=== PATIENT | male | born 1985 | race African-American/Black ===

== ENCOUNTER 2022-01-23 20:50 | Emergency (ER) | payer SELFPAY ==
[2022-01-23] MEDS ORDERED: ACETAMINOPHEN 500 MG TAB ONE (22:18)
[2022-01-23] MEDS ORDERED: KETOROLAC 30 MG/ML INJ ONE (22:18)
[2022-01-23] MEDS ORDERED: NA CHLORIDE 0.9% 1,000 ML ONE (22:19)
[2022-01-23] MEDS ORDERED: FAMOTIDINE 20 MG/2 ML VIAL IV ONE (22:19)
[2022-01-23] MEDS ORDERED: ONDANSETRON 4 MG/2 ML VIAL ONE (22:19)
[2022-01-23 22:30] LABS: Absolute Lymphocytes (CBC) 0.3 K/uL (0.7-4.9); Hematocrit 42.1 % (39.6-49.0); Lymphocytes % 4.9 % (15.3-44.8); MCV 94.4 fL (80-100); MPV 9.6 fL (7.6-11.3); RBC Red Blood Cell Count 4.46 M/uL (4.33-5.43)
[2022-01-23 22:52] LABS: Albumin 4.5 g/dL (3.4-5.0); Bilirubin Total 0.3 mg/dL (0.2-1.0); Potassium 3.3 mmol/L (3.5-5.1)
[2022-01-23] MEDS ORDERED: POTASSIUM CL SA 10 MEQ TAB PO ONE (23:45)
--- NOTE | 2022-01-24 00:05 | ER ---
Nurse's Notes [facility] Name: Katina Lynch Age: 36 yrs Sex: Male : 1985 Arrival Date: 01/23/2022 Time: 20:51 Bed 16 Private MD: Diagnosis: Nausea with vomiting, unspecified Presentation: 01/23 21:20 Chief complaint: Patient states: "I have been throwing up all day long and my body is vc1 in a lot of pain and I feel really weak, I can't keep anything down.". Coronavirus screen: Vaccine status: Patient reports being unvaccinated. fatigue, fever, muscle pain, nausea, vomiting. Client presents with at least one sign or symptom that may indicate coronavirus-19. Standard/surgical mask placed on the client. Provider contacted for isolation considerations. Ebola Screen: No symptoms or risks identified at this time. Risk Assessment: Do you want to hurt yourself or someone else? Patient reports no desire to harm self or others. Onset of symptoms was January 23, 2022 at 10:00. 21:20 Method Of Arrival: Ambulatory vc1 21:20 Acuity: [id number] 3 vc1 21:26 Initial Sepsis Screen: Does the patient meet any 2 criteria? HR > 90 bpm. No. Patient's vc1 initial sepsis screen is negative. Does the patient have a suspected source of infection? No. Patient's initial sepsis screen is negative. Triage Assessment: 21:24 General: Appears in no apparent distress. uncomfortable, Behavior is calm, cooperative, vc1 appropriate for age. Pain: Denies pain. EENT: No deficits noted. Neuro: Level of Consciousness is awake, alert, obeys commands, Oriented to person, place, time, situation. Cardiovascular: Capillary refill < 3 seconds Patient's skin is warm and dry. Respiratory: Airway is patent Respiratory effort is even, unlabored, Respiratory pattern is regular, symmetrical. GI: Reports intolerance of fluids, intolerance of food, nausea, vomiting, Patient currently denies abdominal pain, diarrhea. : No deficits noted. Derm: No signs and/or symptoms reported regarding the dermatologic system. Derm: No deficits noted. Historical: - Allergies: 21:22 No Known Allergies; vc1 - Immunization history:: Adult Immunizations up to date, Client reports having NOT received the Covid vaccine. - Social history:: Smoking status: Patient uses smokes CBD, pre-rolled. Screenin:25 Abuse screen: Denies threats or abuse. Nutritional screening: No deficits noted. vc1 Tuberculosis screening: No symptoms or risk factors identified. Fall Risk None identified. Assessment: 21:58 GI: Reports lower abdominal pain, intolerance of fluids, intolerance of food, nausea. ja4 Musculoskeletal: Reports pain in back. 23:44 GI: Reports tolerance of fluids, tolerance of food. ja4 23:44 Reassessment: pt given oral meds and saltine crackers. baudilio well. ja4 01/24 00:23 Reassessment: Patient states feeling better. Patient states symptoms have improved. ja4 Vital Signs: 01/23 21:20 Weight 70.31 kg; Height 5 ft. 8 in. (172.72 cm); Pain 9/10; vc1 21:22 BP 122 / 71; Pulse 101; Resp 18; Temp 100.5; Pulse Ox 100% ; vc1 21:58 BP 113 / 48; Pulse 94; Resp 16; Pulse Ox 100% on R/A; ja4 23:48 BP 113 / 69; Pulse 79; Resp 18; Pulse Ox 100% on R/A; ja4 21:20 Body Mass Index 23.57 (70.31 kg, 172.72 cm) vc1 ED Course: 20:51 Patient arrived in ED. ja2 20:52 [facility]ren Henriquez F[facility]-C [facility] kb 20:52 Joel Sanchez MD is Attending Physician. kb 21:22 Triage completed. vc1 21:22 Arm band placed on left wrist. vc1 21:48 Viral Zafar, MALLORIE is Primary Nurse. ja4 21:58 Patient has correct armband on for positive identification. Bed in low position. ja4 21:58 No provider procedures requiring assistance completed. Inserted saline lock: 20 gauge ja4 in left antecubital area, using aseptic technique. 22:24 CBC with Diff Sent. ja4 22:24 CMP Sent. ja4 22:24 Lipase Sent. ja4 01/24 00:23 IV discontinued, intact, bleeding controlled, No redness/swelling at site. Pressure ja4 dressing applied. Administered Medications: 01/23 22:17 Drug: NS 0.9% 1000 ml Route: IV; Rate: 1 bolus; Site: left antecubital; ja4 22:17 Drug: Pepcid (famotidine) 20 mg Route: IVP; Site: left antecubital; ja4 22:17 Drug: Zofran (Ondansetron) 4 mg Route: IVP; Site: left antecubital; ja4 22:17 Drug: Ketorolac 15 mg Route: IVP; Site: left antecubital; ja4 23:41 Drug: Tylenol 1000 mg Route: PO; ja4 23:41 Drug: Potassium Chloride 20 mEq Route: PO; ja4 Medication: 21:26 VIS not applicable for this client. vc1 Outcome: 01/24 00:05 Discharge ordered by . jorge 00:23 Discharged to home ambulatory. ja4 00:23 Condition: good 00:23 Discharge instructions given to patient, Instructed on discharge instructions, follow up and referral plans. medication usage, Demonstrated understanding of instructions, follow-up care, medications, Prescriptions given X 1. 00:25 Patient left the ED. ja4 Signatures: Caren Henriquez, CHANG-C CHANG-Annabella Van2 Kizzy Vega, RN RN vc1 Viral Zafar, MALLORIE RN ja4
--- NOTE | 2022-01-24 00:06 | EDPHYS ---
Physician Documentation [facility] Name: Katina Lynch Age: 36 yrs Sex: Male : 1985 Arrival Date: 01/23/2022 Time: 20:51 Bed 16 Private MD: ED Physician Joel Sanchez HPI: 01/23 21:49 This 36 yrs old Male presents to ER via Ambulatory with complaints of General Weakness, kb Nausea/Vomiting. 21:49 The patient presents to the emergency department with nausea, vomiting. Onset: The kb symptoms/episode began/occurred this morning. Possible causes: sick contacts. The symptoms are aggravated by nothing. The symptoms are alleviated by nothing. Associated signs and symptoms: Pertinent positives: nausea, vomiting. Severity of symptoms: At their worst the symptoms were moderate in the emergency department the symptoms are unchanged. The patient has not experienced similar symptoms in the past. The patient has not recently seen a physician. Patient reports nausea and vomiting that started this morning. States he is unable to tolerate anything by mouth resulting in weakness. Reports several coworkers have had a stomach bug this week. Denies diarrhea or abdominal pain. Reports low back pain.. Historical: - Allergies: 21:22 No Known Allergies; vc1 - Immunization history:: Adult Immunizations up to date, Client reports having NOT received the Covid vaccine. - Social history:: Smoking status: Patient uses smokes CBD, pre-rolled. ROS: 22:56 Constitutional: Negative for fever, chills, and weight loss. kb 22:56 Abdomen/GI: Positive for nausea and vomiting, Negative for abdominal pain, diarrhea. 22:56 Back: Positive for pain at rest. 22:56 Neuro: Positive for weakness. 22:56 All other systems are negative. Exam: 22:56 Constitutional: This is a well developed, well nourished patient who is awake, alert, kb and in no acute distress. Head/Face: Normocephalic, atraumatic. ENT: Moist Mucous membranes Cardiovascular: Regular rate and rhythm with a normal S1 and S2. No gallops, murmurs, or rubs. No pulse deficits. Respiratory: Respirations even and unlabored. No increased work of breathing. Talking in full sentences Abdomen/GI: Soft, non-tender. No distention Back: No spinal tenderness. No costovertebral tenderness. Full range of motion. Skin: Warm, dry with normal turgor. Normal color. MS/ Extremity: Pulses equal, no cyanosis. Neurovascular intact. Full, normal range of motion. Neuro: Awake and alert, GCS 15, oriented to person, place, time, and situation. Moves all extremities. Normal gait. Psych: Awake, alert, with orientation to person, place and time. Behavior, mood, and affect are within normal limits. Vital Signs: 21:20 Weight 70.31 kg; Height 5 ft. 8 in. (172.72 cm); Pain 9/10; vc1 21:22 BP 122 / 71; Pulse 101; Resp 18; Temp 100.5; Pulse Ox 100% ; vc1 21:58 BP 113 / 48; Pulse 94; Resp 16; Pulse Ox 100% on R/A; ja4 23:48 BP 113 / 69; Pulse 79; Resp 18; Pulse Ox 100% on R/A; ja4 21:20 Body Mass Index 23.57 (70.31 kg, 172.72 cm) vc1 MDM: 21:24 Patient medically screened. kb 22:57 Data reviewed: vital signs, nurses notes. Data interpreted: Pulse oximetry: on room air kb is 100 %. Interpretation: normal. Counseling: I had a detailed discussion with the patient and/or guardian regarding: the historical points, exam findings, and any diagnostic results supporting the discharge/admit diagnosis, lab results, the need for outpatient follow up, a family practitioner, to return to the emergency department if symptoms worsen or persist or if there are any questions or concerns that arise at home. 01/24 00:04 ED course: Patient tolerating p.o. intake. Feeling better ready for discharge.. kb 01/23 21:24 Order name: CBC with Diff; Complete Time: 22:34 kb 01/23 21:24 Order name: CMP; Complete Time: 22:53 kb 01/23 21:24 Order name: Lipase; Complete Time: 22:53 kb 01/23 21:24 Order name: IV Saline Lock; Complete Time: 22:07 kb 01/23 21:24 Order name: Labs collected and sent; Complete Time: 23:04 kb 01/23 22:53 Order name: PO challenge; Complete Time: 23:41 kb Administered Medications: 01/23 22:17 Drug: NS 0.9% 1000 ml Route: IV; Rate: 1 bolus; Site: left antecubital; ja4 22:17 Drug: Pepcid (famotidine) 20 mg Route: IVP; Site: left antecubital; ja4 22:17 Drug: Zofran (Ondansetron) 4 mg Route: IVP; Site: left antecubital; ja4 22:17 Drug: Ketorolac 15 mg Route: IVP; Site: left antecubital; ja4 23:41 Drug: Tylenol 1000 mg Route: PO; 4 23:41 Drug: Potassium Chloride 20 mEq Route: PO; ja4 Disposition: 01/24 05:08 Co-signature as Attending Physician, Joel Sanchez MD. rn Disposition Summary: 01/24/22 00:05 Discharge Ordered Location: Home kb Condition: Stable kb Diagnosis - Nausea with vomiting, unspecified kb Followup: kb - With: Emergency Department - When: As needed - Reason: Worsening of condition Followup: kb - With: Private Physician - When: 2 - 3 days - Reason: Recheck today's complaints, Continuance of care, Re-evaluation by your physician Discharge Instructions: - Discharge Summary Sheet kb - Nausea and Vomiting, Adult, [id number] kb Forms: - Medication Reconciliation Form kb - Thank You Letter kb - Antibiotic Education kb - Prescription Opioid Use kb Prescriptions: - Zofran 4 mg Oral Tablet - take 1 tablet by ORAL route every 6 hours As needed; 20 tablet; Refills: 0, kb Product Selection Permitted Signatures: Dispatcher [employer] Caren Hansen, LEONIE GIBSONP-Ckb Joel Sanchez MD MD rn Calcote, Vanessa RN RN vc1 Viral Zafar RN RN ja4
[2022-01-24 02:43] VITALS: TEMP 100.5; O2SAT 100
[2022-01-24 03:01] VITALS: BP 113/69
== END 2022-01-24 00:25 | disposition home or self-care (01) ==
LOC: ER 20:50
DX: R11.2 Nausea with vomiting, unspecified (principal); R53.1 Weakness; M54.50 Low back pain, unspecified
CPT/HCPCS: 36415; 80053; 83690; 85025; 96374; 96375; 99284; J2405; J7030